=== PATIENT | male | born 1980 | race Two or more races ===

== ENCOUNTER 2017-01-29 06:39 | Emergency (ER) | payer SELFPAY ==
[~2017-01-29 06:39] MED LIST: AMOXICILLIN875 M1 PO; CODEINE-GUAIFE120 M1 PO; ULTRAM50 MG PO
[2017-01-29] MEDS ORDERED: IBUPROFEN800 M1 PO ×2 (06:55→08:00)
[2017-01-29] MEDS ORDERED: NORCO 5-325 TA1 EACH PO ×2 (06:55→08:00)
[2017-01-29 07:16] LABS: URINE BILIRUBIN NEGATIVE (NEG); URINE BLOOD SMALL (NEG); URINE GLUCOSE (UA) NEGATIVE (NEG); URINE KETONE NEGATIVE (NEG); URINE LEUKOCYTE ESTERASE NEGATIVE (NEG); URINE NITRITE NEGATIVE (NEG); URINE PROTEIN NEGATIVE (NEG); URINE SPECIFIC GRAVITY 1.005 (1.003-1.030)
[2017-01-29 07:17] LABS: URINE APPEARANCE CLEAR; URINE COLOR PALE YELLOW
[2017-01-29 07:27] LABS: URINE EPITHELIAL CELLS 0-2 /[HPF] (0-10); URINE WBC 0 /[HPF] (0-5)
[2017-06-26] MEDS ORDERED: ERYTHROMYCIN1 GM OP (21:20)
== END 2017-01-29 08:29 ==
LOC: EDMED 06:39
PROVIDERS: Emergency Medicine
DX: M54.5 Low back pain (principal)